=== PATIENT | female | born 1975 | race Caucasian/White ===

== ENCOUNTER 2016-08-19 04:46 | Emergency (ER) | payer SELFPAY ==
[~2016-08-19] VITALS: Ht 177.8 cm; Wt 80.6 kg
[~2016-08-19 04:46] MED LIST: AMOX500C2 PO; AMOX500T2 PO; CITA40TA14 PO; PROP20TA7 PO; TRAM50TA4 PO; TRAZ-170 PO; VITA1TAB21 PO
--- OUTSIDE RECORDS SUMMARY | 2016-08-19 04:50 | XMS REPORT ---
Author Author Rae Bates eClinicalWorks Address Unknown Phone Unavailable Care Team Providers Care Senior Stereo Compiler Team Lead Name Role Phone Rae Bates CP Unavailable Allergies No Known Allergies Problems Problem Type Condition Code Onset Dates Condition Status Problem Bipolar disorder, current episode depressed, moderate F31.32 Active Problem Generalized anxiety disorder F41.1 Active Problem Attention-deficit hyperactivity disorder, combined type F90.2 Active Problem Irregular menstrual cycle 626.4 Active Problem Other constipation 564.09 Active Problem Personal history of tobacco use, presenting hazards to health V15.82 Active Medications Medication Code System Code Instructions Start Date End Date Status Dosage Trazodone HCl [facility] [address]-18 100 MG Orally at bedtime as needed for sleep Jul 09, 2015 1-2 tablets at bedtime Citalopram Hydrobromide [facility] [id number] 40 MG Orally Once a day 1/ 2 tablet for one week, then increase to one full tablet daily Vyvanse [facility] [address]-19 40 MG Orally Once a day for ADHD October 25, 2015 1 capsule in the morning Propranolol HCl [facility] [address]-84 20 MG Orally twice a day for anxiety 1 tablet Results No Known Results Summary Purpose eClinicalWorks Submission
--- OUTSIDE RECORDS SUMMARY | 2016-08-19 04:50 | XMS REPORT | Continuity of Care Document ---
Author Author [facility] Organization [facility] Address Unknown Phone Unavailable Allergies Active Description Code Type Severity Reaction Onset Reported/Identified Relationship to Patient Clinical Status Yes No Known Allergies No Known Allergies Drug Allergy Unknown N/A 03/06/2015 Medications Problems Date Dx Coded Attending Type Code Diagnosis Diagnosed By 09/07/2013 Tyrell Bond MD Final 346.90 MIGRAINE NOS W/O SM 09/07/2013 Tyrell Bond MD Final 401.9 HYPERTENSION NOS 09/07/2013 Tyrell Bond MD 784.0 HEADACHE 10/05/2013 Ingrid Scott DO Final 305.1 TOBACCO USE DISORDER 10/05/2013 Ingrid Scott DO Final 307.81 TENSION HEADACHE 10/05/2013 Ingrid Scott DO Final 401.9 HYPERTENSION NOS 10/05/2013 Ingrid Scott DO Admitting 784.0 HEADACHE Procedures Results Test Result Range GLUCOSE (POC) - 07/02/14 18:46 GLUCOSE (POC) 96 mg/dL 70-99 Encounters ACCT No. Visit Date/Time Discharge Status Pt. Type Provider Facility Loc./Unit Complaint [id number] 10/05/2013 09:00:00 2013 11:03:00 DIS Emergency Ingrid Scott DO [facility] [id number] 09/07/2013 01:17:00 2013 02:35:00 DIS Emergency Tyrell Bond MD [facility]
--- OUTSIDE RECORDS SUMMARY | 2016-08-19 04:51 | XMS REPORT | Continuity of Care Document ---
Author Author [facility] Organization [facility] Address Unknown Phone Unavailable Support Name Relationship Address Phone CANDACE GODINEZ MD [address] [place] [address] Unavailable KALE MARROQUIN Next Of Kin [address] [place] [address] Insurance Providers Guarantor Ashok Carlson Address [address] [place] [id number] Email DENIED/NO TO PORTAL Payer Self Pay Subscriber's Name Ashok Carlson Relationship 18 Self Advance Directives Directive Response Recorded Date/Time Advanced Directives Type None 10/27/13 4:14pm Ordered Resuscitation Status Full Code 10/27/13 8:48am Chief Complaint and Reason for Visit Chief Complaint Toothache Reason for Visit Dental caries Problems Active Problems Medical Problem Onset Date Status Abdominal pain Unknown Acute Abdominal pain Unknown Acute Acute cholecystitis Unknown Acute Acute cholecystitis Unknown Acute Cough Unknown Acute Dental caries Unknown Acute Gum abscess Unknown Acute Gum abscess Unknown Acute Lumbar back pain Unknown Acute Lumbar back pain Unknown Acute Migraine Unknown Acute Muscle spasm of back Unknown Acute Pain, dental Unknown Acute Sinusitis Unknown Acute Toothache Unknown Acute Toothache Unknown Acute Past Problems Medical Problem Onset Date Dental infection Unknown Medication side effect Unknown Polysubstance abuse Unknown Stimulant abuse Unknown Suicidal intent Unknown Medications Current Home Medications Medication Dose Units Route Directions Days Qty Instructions Start Date Amoxicillin 500 Mg Tablet 500 Mg Oral Three Times A Day 10 Days Amoxicillin 500 Mg Capsule 500 Mg Oral Twice A Day 02/20/16 Citalopram Hydrobromide (Celexa) 40 Mg Tablet 40 Mg Oral Bedtime 12/27/15 Propranolol Hcl 20 Mg Tablet 20 Mg Oral Twice A Day 06/21/15 Tramadol Hcl 50 Mg Tablet 1-2 Tab Oral Every 6 Hours as needed for Pain 10 Tablet 02/20/16 Trazodone Hcl 50 Mg Tablet 50-100 Mg Oral Bedtime 07/20/15 Vitamin B Complex 1 Each Tablet 1 Tab Oral Daily 02/20/16 Past Home Medications Medication Directions Ordered Status Amoxicillin 500 Mg Capsule, 1 Cap Oral Three Times A Day 12/14/14 Discontinued None , 02/18/10 Discontinued Tramadol Hcl 50 Mg Tablet, 1-2 Tab Oral Q6h/0300,0900,1500,2100 as needed for Dental Pain 12/14/14 Discontinued Social History Social History Problem Response Recorded Date/Time Onset Date Status Chewing Tobacco Status No 10/27/2013 10:12am Not Applicable Not Applicable Hx Substance Use Y HX OF - meth, 02/20/2016 11:24am Not Applicable Not Applicable Hx Alcohol Use Y Occassional 02/20/2016 11:24am Not Applicable Not Applicable Has the pt used tobacco in the last 12 months Yes 10/27/2013 4:15pm Not Applicable Not Applicable Tobacco Usage smoke 10/20/2013 1:51pm Not Applicable Not Applicable Query Response Start Date Stop Date Smoking Status Current every day smoker Hospital Discharge Instructions No hospital discharge instructions. Plan of Care Discharge Date 02/20/16 11:33am Disposition 01 DISCHARGED HOME, SELF-CARE Condition at Discharge Stable Instructions/Education Provided Tooth Decay Prescriptions See Medication Section Additional Instructions/Education The only person who can fix this problem is a dentist, I have provided you with the [employer] dental numbers for [place] Care Plan and Goals Physician Care Plan Problem: Tooth decay Goal: Follow up with primary care provider Instructions: Take medications and follow care plan as discussed/written Functional Status No functional status results. Allergies, Adverse Reactions, Alerts Allergen Type Severity Reaction Status Last Updated No Known Drug Allergies Allergy Unknown Active 01/30/16 Immunizations Query Response on File Recorded Date/Time Hx Influenza Vaccination No 12/28/14 3:08am Hx Pneumococcal Vaccination No 12/28/14 3:08am Hx Influenza Vaccination No 12/28/14 3:08am Influenza Vaccine Hx no 02/20/16 11:24am Vital Signs Acute Vital Signs Vital Response Date/Time Temperature (Fahrenheit) 97.9 deg F (96.8 - 99.1) 02/20/2016 11:33am Temperature (Calculated Celsius) 36.80323 degrees C (36.0 - 37.3) 02/20/2016 11:33am Pulse Rate (adult) 97 bpm (60 - 100) 02/20/2016 11:33am Respiratory Rate 20 breaths/min (10 - 20) 02/20/2016 11:33am O2 Sat by Pulse Oximetry 96 % (90 - 100) 02/20/2016 11:33am Blood Pressure 116/77 mm Hg 02/20/2016 11:33am Height (Feet) 5 feet 02/20/2016 10:52am Height (Inches) 10.00 inches 02/20/2016 10:52am Weight (Kilograms) 82.200 kg 02/20/2016 10:52am Body Mass Index (BMI) 26.0 02/20/2016 10:52am Results Laboratory Results Test Name Result Units Flags Reference Collection Date/Time Result Date/ Time Comments White Blood Count 15.9 T/MM3 H 4.5-11.0 01/30/2016 10:19pm 01/30/2016 10 :44pm Red Blood Count 4.65 M/MM3 4.00-5.20 01/30/2016 10:19pm 01/30/2016 10: 44pm Hemoglobin 13.3 GM/DL 12-16 01/30/2016 10:01/30/2016 10:44pm Hematocrit 39.4 % 36-46 01/30/2016 10:01/30/2016 10:44pm Mean Corpuscular Volume 84.7 UM3 80-100 01/30/2016 10:01/30/2016 10:44pm Mean Corpuscular Hemoglobin 28.6 UUG 26-34 01/30/2016 10:pm 2015 10:44pm Mean Corpuscular Hemoglobin Concent 33.8 GM/DL 31-37 01/30/2016 10:01/30/2016 10:44pm RDW Standard Deviation 39.7 FL 36.9-50.2 01/30/2016 10:01/30/2016 10:44pm Platelet Count 356 T/MM3 130-400 01/30/2016 10:01/30/2016 10:44pm Mean Platelet Volume 9.4 UM3 9.4-12.4 01/30/2016 10:pm 01/30/2016 10: 44pm Neutrophils (%) (Auto) 76.3 % H 33-66 01/30/2016 7:55pm 01/30/2016 7: 59pm Lymphocytes (%) (Auto) 16.8 % L 23-45 01/30/2016 7:55pm 01/30/2016 7: 59pm Monocytes (%) (Auto) 6.2 % 0-9.0 01/30/2016 7:55pm 01/30/2016 7:59pm Eosinophils (%) (Auto) 0.2 % 0-4 01/30/2016 7:55pm 01/30/2016 7:59pm Basophils (%) (Auto) 0.2 % 0-2 01/30/2016 7:55pm 01/30/2016 7:59pm Immature Granulocyte % (Auto) 0.3 % 0.0-0.5 01/30/2016 7:55pm 2015 7:59pm Absolute Neutrophils (auto) 14.3 T/MM3 H 1.8-7.7 01/30/2016 7:55pm 01/29 7:59pm Absolute Lymphocytes (auto) 3.1 T/MM3 1-4.8 01/30/2016 7:55pm 2015 7:59pm Absolute Monocytes (auto) 1.2 T/MM3 H 0-0.8 01/30/2016 7:55pm 2015 7:59pm Absolute Eosinophils (auto) 0.0 T/MM3 0-0.5 01/30/2016 7:55pm 2015 7:59pm Absolute Basophils (auto) 0.0 T/MM3 0-0.2 01/30/2016 7:55pm 01/30/2016 7:59pm Absolute Immature Granulocyte (auto 0.05 T/MM3 H 0.00-0.03 01/30/2016 7: 55pm 01/30/2016 7:59pm Neutrophils % (Manual) 74.0 % H 33-66 01/30/2016 10:19pm 01/30/2016 10: 57pm Band Neutrophils % 1.0 % 0-6 01/30/2016 10:19pm 01/30/2016 10:57pm Lymphocytes % (Manual) 16.0 % L 23-45 01/30/2016 10:19pm 01/30/2016 10: 57pm Monocytes % (Manual) 6.0 % 0-9.0 01/30/2016 10:19pm 01/30/2016 10:57pm Eosinophils % (Manual) 1.0 % 0-4 01/30/2016 10:19pm 01/30/2016 10:57pm Reactive Lymphocytes % 2.0 % H 0-0 01/30/2016 10:01/30/2016 10: 57pm Band Neutrophils # 0.2 T/MM3 01/30/2016 10:01/30/2016 10:57pm Absolute Neutrophils (Manual) 11.8 T/MM3 H 1.8-7.7 01/30/2016 10:pm 10:57pm Lymphocytes # (Manual) 2.5 T/MM3 1-4.8 01/30/2016 10:pm 01/30/2016 10 :57pm Monocytes # (Manual) 1.0 T/MM3 H 0-0.8 01/30/2016 10:pm 01/30/2016 10: 57pm Eosinophils # (Manual) 0.2 T/MM3 0-0.5 01/30/2016 10:pm 01/30/2016 10 :57pm Reactive Lymphocytes # 0.3 T/MM3 H 0-0 01/30/2016 10:pm 01/30/2016 10: 57pm Red Cell Morphology Comment NORMAL 01/30/2016 10:01/30/2016 10 :57pm Icterus Index < 2 0-7 01/30/2016 4:pm 01/30/2016 4:44pm Chemistry Specimen Hemolysis < 15 0-25 01/30/2016 10:01/30/2016 10:29pm 0-25: Specimen Exhibited No Hemolysis. Turbidity < 20 0-20 01/30/2016 4:23pm 01/30/2016 4:44pm Sodium Level 141 MEQ/L 134-144 01/30/2016 4:pm 01/30/2016 4:50pm Potassium Level 3.4 MEQ/L L 3.6-5 01/30/2016 10:01/30/2016 10:29pm Chloride Level 104 MEQ/L 98-107 01/30/2016 4:23pm 01/30/2016 4:50pm Carbon Dioxide Level 23 MEQ/L 22-30 01/30/2016 4:pm 01/30/2016 4: 50pm Anion Gap 14 MEQ/L 5-15 01/30/2016 4:23pm 01/30/2016 4:50pm Blood Urea Nitrogen 14.0 MG/DL 7-01/30/2016 4:01/30/2016 4: 50pm Creatinine 0.7 MG/DL 0.7-1.2 01/30/2016 4:pm 01/30/2016 4:50pm BUN/Creatinine Ratio 20 RATIO 6-26 01/30/2016 4:01/30/2016 4:50pm Glomerular Filtration Rate Calc 92 01/30/2016 4:01/30/2016 4: 50pm Glucose Level 99 MG/DL 65-110 01/30/2016 4:01/30/2016 4:50pm Calculated Osmolality 272 MOSM/KG 261-280 01/30/2016 4:01/30/2016 4:50pm Calcium Level 9.7 MG/DL 8.4-10.2 01/30/2016 4:pm 01/30/2016 4:50pm Acetaminophen Level < 10 UG/ML L 10-01/30/2016 4:pm 01/30/2016 4: 50pm TOXIC <4 HR POST INGESTION: >150 MG/L; TOXIC <12 HR POST INGESTION: >50 MG/L Salicylates Level < 1.0 MG/DL L 201/30/2016 4:01/30/2016 4: 50pm Alcohol, Quantitative <10 MG/DL <10 01/30/2016 4:01/30/2016 4: 50pm Thyroid Stimulating Hormone (TSH) 1.25 MIU/L 0.47-4.68 01/30/2016 4: pm 01/30/2016 5:32pm Urine Collection Type CLEANCATCH-MIDSTREAM 01/30/2016 4:2015 4:40pm Urine Color YELLOW YELLOW 01/30/2016 4:01/30/2016 4:40pm Urine Turbidity SL CLOUDY CLEAR 01/30/2016 4:pm 01/30/2016 4:40pm Urine Specific [place] >=1.030 H 1.015-1.025 01/30/2016 4:pm 2015 4:40pm Urine pH 5.5 5.0-8.0 01/30/2016 4:pm 01/30/2016 4:40pm Urine Leukocyte Esterase NEGATIVE NEGATIVE 01/30/2016 4:2015 4:40pm Urine Nitrite NEGATIVE NEGATIVE 01/30/2016 4:27pm 01/30/2016 4:40pm Urine Protein TRACE A NEGATIVE 01/30/2016 4:27pm 01/30/2016 4:40pm Urine Glucose (UA) NEGATIVE NEGATIVE 01/30/2016 4:27pm 01/30/2016 4: 40pm Urine Ketones NEGATIVE NEGATIVE 01/30/2016 4:27pm 01/30/2016 4:40pm Urine Urobilinogen 0.2 EU/DL NORMAL 01/30/2016 4:27pm 01/30/2016 4: 40pm Urine Bilirubin 1+ A NEGATIVE 01/30/2016 4:27pm 01/30/2016 4:40pm Urine Blood NEGATIVE NEGATIVE 01/30/2016 4:27pm 01/30/2016 4:40pm Urinalysis Comment MICROSCOPIC NOT IND. 01/30/2016 4:27pm 2015 4:40pm Procedures Procedure Status Date Provider(s) HYDRATE IV INFUSION ADD-ON Completed 01/30/16 HYDRATE IV INFUSION ADD-ON Completed 01/30/16 HYDRATE IV INFUSION ADD-ON Completed 01/30/16 THER/PROPH/DIAG INJ SC/IM Completed 01/30/16 THER/PROPH/DIAG INJ IV PUSH Completed 01/30/16 TX/PRO/DX INJ SAME DRUG CHEMICAL RESEARCH TECHNICIAN Completed 01/30/16 Encounters Encounter Location Arrival/Admit Date Discharge/Depart Date Attending Provider Departed Emergency Room [facility] 02/20/16 10:50am 02/20/16 11: 33am CANDACE GODINEZ MD Departed Emergency Room [facility] 01/30/16 3:03pm 01/31/16 12: 24am MORAIMA HONG DO Departed Emergency Room [facility] 01/19/16 2:17am 01/19/16 2: 51am MAYNOR GILES MD Departed Emergency Room [facility] 12/27/15 2:11pm 12/27/15 3: 50pm CANDACE GODINEZ MD Recent Diagnosis
--- OUTSIDE RECORDS SUMMARY | 2016-08-19 04:51 | XMS REPORT | Continuity of Care Document ---
Author Author [facility] Organization [facility] Address Unknown Phone Unavailable Support Name Relationship Address Phone BECKY RICARDO MD Caregiver [address] [place] [address] [place] [phone] KALE DALEY Next Of Kin [address] [place] [address] Insurance Providers Payer Name Policy Number Subscriber Name Relationship Raoul [employer] [id number] Ashok Carlson 18 Self Advance Directives Directive Response Recorded Date/Time Advanced Directives Type None 10/27/13 4:14pm Ordered Resuscitation Status Full Code 10/27/13 8:48am Problems Medical Problems Problem Onset Date Status Abdominal pain Unknown Active Abdominal pain Unknown Active Acute cholecystitis Unknown Active Acute cholecystitis Unknown Active Toothache Unknown Active Toothache Unknown Active Gum abscess Unknown Active Dental caries Unknown Active Gum abscess Unknown Active Muscle spasm of back Unknown Active Lumbar back pain Unknown Active Medications Medication Dose Route Sig Days/Qty Instructions Order Date Discontinued Date Status [None] 02/18/10 05/29/12 Discontinued Citalopram Hydrobromide 40 Mg PO DAILY 05/29/12 Active Trazodone HCl 1 Tab BEDTIME 12/28/13 Active Propranolol HCl 40 Mg PO TWICE A DAY Take 1 tablet, by mouth, 2 times a day. 03/06/14 Active Cyclobenzaprine HCl 1 Tab PO THREE TIMES A DAY 04/13/14 Active Dextroamphetamine/Amphetamine 1 Tab PO 04/13/14 Active Naproxen 500 Mg PO TWICE A DAY 10 Days 04/13/14 Active Hydrocodone/Acetaminophen 1 Tab PO EVERY 4-6 HOURS 20 Qty 04/13/14 Active Social History Social History Problem Response Recorded Date/Time Smoking Status Current every day smoker 10/27/2013 4:15pm When did patient START smoking? 1988 04/13/2014 4:28pm Chewing Tobacco Status No 10/27/2013 10:12am Hx Substance Use Y 6-7 years ago - meth, denies current use 04/13/2014 4:28pm Hx Alcohol Use Y Occassional 04/13/2014 4:28pm Has the pt used tobacco in the last 12 months Yes 10/27/2013 4:15pm Query Response Start Date Stop Date Smoking Status Current every day smoker Hospital Discharge Instructions No hospital discharge instructions. Plan of Care No plan of care. Functional Status Query Response Date Recorded Physical Hygiene Self April 13, 2014 4:28pm Disabilities None October 31, 2013 3:47pm Devices Used None October 31, 2013 3:47pm Dressing Self October 31, 2013 3:47pm Ambulation Self October 31, 2013 3:47pm Diet Self October 31, 2013 3:47pm Mental Status Alert Oriented October 31, 2013 3:47pm Disabilities None October 31, 2013 3:47pm Devices Used None October 31, 2013 3:47pm Physical Hygiene Self April 13, 2014 4:28pm Dressing Self October 31, 2013 3:47pm Ambulation Self October 31, 2013 3:47pm Diet Self October 31, 2013 3:47pm Allergies, Adverse Reactions, Alerts Allergen Type Severity Reaction Status Last Updated No Known Drug Allergies Allergy Unknown Active 03/06/14 Immunizations Name Given Type Hx Influenza Vaccination No Historical Hx Pneumococcal Vaccination No Historical Hx Influenza Vaccination No Historical Vital Signs Acute Vital Signs Vital Response Date/Time Temperature (Fahrenheit) 96.7 deg F (96.8 - 99.1) Temperature (Calculated Celsius) 35.08655 degrees C (36.0 - 37.3) Pulse Rate (adult) 80 bpm (60 - 100) Respiratory Rate 12 breaths/min (10 - 20) O2 Sat by Pulse Oximetry 100 % (90 - 100) Oxygen Flow Rate 2.0 L/min Blood Pressure 168/87 mm Hg Height 5 ft 10 in Weight 112 lb Body Mass Index 16.0 kg/m^2 Results Test Source Date Result Interp. Ref. Range Comments Alanine Aminotransferase (ALT/SGPT) October 27, 2013 5:55am 31 U/L N 9-52 Albumin October 27, 2013 5:55am 3.7 G/DL N 3.5-5.0 Albumin/Globulin Ratio October 27, 2013 5:55am 1.0 RATIO L 1.1-2.2 Alkaline Phosphatase October 27, 2013 5:55am 271 U/L H 38-126 Amylase Level October 27, 2013 5:55am 38 U/L N 30-110 Anion Gap October 30, 2013 4:24am 8 MEQ/L N 5-15 Aspartate Amino Transf (AST/SGOT) October 27, 2013 5:55am 23 U/L N 14-36 BUN/Creatinine Ratio October 30, 2013 4:24am Not Performed 6-26 Band Neutrophils # October 28, 2013 4:31am 0.7 T/MM3 - Band Neutrophils % October 28, 2013 4:31am 4.0 % N 0-6 Basophils # (Auto) October 31, 2013 5:44am 0.0 T/MM3 N 0-0.2 Basophils (%) (Auto) October 31, 2013 5:44am 0.5 % N 0-2 Blood Urea Nitrogen October 30, 2013 4:24am < 2.0 MG/DL L 7-17 Calcium Level October 30, 2013 4:24am 8.6 MG/DL N 8.4-10.2 Calculated Osmolality October 30, 2013 4:24am Test not performed 261-280 Carbon Dioxide Level October 30, 2013 4:24am 30 MEQ/L N 22-30 Chloride Level October 30, 2013 4:24am 98 MEQ/L N 98-107 Creatinine October 30, 2013 4:24am 0.5 MG/DL L 0.7-1.2 Eosinophils # (Auto) October 31, 2013 5:44am 0.4 T/MM3 N 0-0.5 Eosinophils (%) (Auto) October 31, 2013 5:44am 4.2 % H 0-4 Globulin October 27, 2013 5:55am 3.7 G/DL H 2.4-3.6 Glucose Level October 30, 2013 4:24am 95 MG/DL N 65-110 Group A Streptococcus Screen May 29, 2012 8:20am Negative - Strep culture confirmation to follow Hematocrit October 31, 2013 5:44am 27.0 % L 36-46 Hemoglobin October 31, 2013 5:44am 8.8 GM/DL DL 12-16 Lipase October 27, 2013 5:55am 37 U/L N 23-300 Lymphocytes # (Auto) October 31, 2013 5:44am 2.3 T/MM3 N 1-4.8 Lymphocytes # (Manual) October 28, 2013 4:31am 2.0 T/MM3 N 1-4.8 Lymphocytes % (Manual) October 28, 2013 4:31am 12.0 % L 23-45 Lymphocytes (%) (Auto) October 31, 2013 5:44am 26.9 % N 23-45 Mean Corpuscular Hemoglobin October 31, 2013 5:44am 26.7 UUG N 26-34 Mean Corpuscular Hemoglobin Concent October 31, 2013 5:44am 32.6 GM/DL N 31 -37 Mean Corpuscular Volume October 31, 2013 5:44am 82.1 UM3 N 80-100 Mean Platelet Volume October 31, 2013 5:44am 8.4 UM3 L 9.4-12.4 Monocytes # (Auto) October 31, 2013 5:44am 0.9 T/MM3 H 0-0.8 Monocytes # (Manual) October 28, 2013 4:31am 1.0 T/MM3 H 0-0.8 Monocytes % (Manual) October 28, 2013 4:31am 6.0 % N 0-9.0 Monocytes (%) (Auto) October 31, 2013 5:44am 10.0 % H 0-9.0 Neutrophils # (Auto) October 31, 2013 5:44am 4.9 T/MM3 N 1.8-7.7 Neutrophils # (Manual) October 28, 2013 4:31am 13.3 T/MM3 H 1.8-7.7 Neutrophils % (Manual) October 28, 2013 4:31am 78.0 % H 33-66 Neutrophils (%) (Auto) October 31, 2013 5:44am 57.8 % N 33-66 Platelet Count October 31, 2013 5:44am 687 T/MM3 H 130-400 Potassium Level October 30, 2013 4:24am 4.5 MEQ/L DN 3.6-5 RDW Standard Deviation October 31, 2013 5:44am 36.3 FL L 36.9-50.2 Red Blood Count October 31, 2013 5:44am 3.29 M/MM3 L 4.00-5.20 Sodium Level October 30, 2013 4:24am 136 MEQ/L N 134-144 Total Bilirubin October 27, 2013 5:55am < 0.10 MG/DL L 0.20-1.30 Total Protein October 27, 2013 5:55am 7.4 G/DL N 6.3-8.2 Urine Bilirubin October 27, 2013 6:05am Negative - Has specimen been collected/obtained? Y Urine Blood October 27, 2013 6:05am Negative - Has specimen been collected/obtained? Y Urine Collection Type October 27, 2013 6:05am Cleancatch-midstream - Has specimen been collected/obtained? Y Urine Color October 27, 2013 6:05am Yellow - Has specimen been collected /obtained? Y Urine Glucose (UA) October 27, 2013 6:05am Negative - Has specimen been collected/obtained? Y Urine Ketones October 27, 2013 6:05am Negative - Has specimen been collected/obtained? Y Urine Leukocyte Esterase October 27, 2013 6:05am Negative - Has specimen been collected/obtained? Y Urine Nitrite October 27, 2013 6:05am Negative - Has specimen been collected/obtained? Y Urine Protein October 27, 2013 6:05am Negative - Has specimen been collected/obtained? Y Urine Specific [place] October 27, 2013 6:05am <=1.005 L - Has specimen been collected/obtained? Y Urine Turbidity October 27, 2013 6:05am Clear - Has specimen been collected/obtained? Y Urine Urobilinogen October 27, 2013 6:05am 0.2 EU/DL - Has specimen been collected/obtained? Y Urine pH October 27, 2013 6:05am 6.0 - Has specimen been collected/ obtained? Y White Blood Count October 31, 2013 5:44am 8.5 T/MM3 N 4.5-11.0 Chemistry Specimen Hemolysis October 30, 2013 4:24am < 15 0-25 0-25: No Hemolysis.26-70: Slight Hemolysis - can falsely elevate K and Urine Protein. 71-285: Moderate Hemolysis - can falsely elevate K, Troponin I, CA 19-9, PTH, CSF GLucose, and Urine Protein, and can falsely decrease Phenytoin. 286-999: Gross Hemolysis - can falsely elevate K, Troponin I, CA 19-9, PTH, CSF Glucose, and Urine Protine, and can falsely decrease Phenytoin. Recommend specimen recollection. Urinalysis Comment October 27, 2013 6:05am Microscopic not ind. - Has specimen been collected/obtained? Y Turbidity October 30, 2013 4:24am < 20 0-20 Glomerular Filtration Rate Calc October 30, 2013 4:24am 138 - Immature Granulocyte # (Auto) October 31, 2013 5:44am 0.05 T/MM3 H 0.00- 0.03 Immature Granulocyte % (Auto) October 31, 2013 5:44am 0.6 % H 0.0-0.5 Icterus Index October 30, 2013 4:24am < 2 0-7 Group A Streptococcus Culture Throat May 29, 2012 8:46am Procedures No known history of procedures. Encounters Encounter Location Date/Time Departed Emergency Room [facility] 04/13/14 4:09pm Departed Emergency Room [facility] 03/06/14 4:42am Recent Diagnosis
--- OUTSIDE RECORDS SUMMARY | 2016-08-19 04:51 | XMS REPORT | Continuity of Care Document ---
Author Author [facility] Organization [facility] Address Unknown Phone Unavailable Care Team Providers Care Degree Clerk Name Role Phone MENDEL PLATA APRN Primary Care Physician [phone] Insurance Providers Payer Name Policy Number Subscriber Name Relationship [employer] [id number] Ashok Carlson 17 Self Advance Directives Directive [...] caries Unknown Active Gum abscess Unknown Active Medications Medication Dose Route Sig Days/Qty Instructions Order Date Discontinued Date Status [None] 02/18/10 05/29/12 Discontinued Citalopram Hydrobromide 40 Mg PO DAILY 05/29/12 Active Trazodone HCl 1 Tab BEDTIME 12/28/13 Active Propranolol HCl 20 Mg PO TWICE A DAY Take 1 tablet, by mouth, 2 times a day. 03/06/14 Active Amoxicillin 500 Mg PO THREE TIMES A DAY 30 Qty 03/06/14 Active Hydrocodone/Acetaminophen 1-2 Tab PO Every 6 Hours PRN PAIN 20 Qty Active Social History Social History Problem Response Recorded Date/Time Smoking Status Current every day smoker 10/27/2013 4:15pm When did patient START smoking? started at age 12 03/06/2014 4:50am Chewing Tobacco Status No 10/27/2013 10:12am Hx Substance Use Y 6-7 years ago - meth, denies current use 03/06/2014 4:50am Hx Alcohol Use Y Occassional 03/06/2014 4:50am Has the pt used tobacco in the last 12 months Yes 10/27/2013 4:15pm Query Response Start Date Stop Date Smoking Status Current every day smoker Hospital Discharge Instructions No hospital discharge instructions. Plan of Care No plan of care. Functional Status Query Response Date Recorded Physical Hygiene Self March 06, 2014 4:50am Disabilities None October 31, 2013 3:47pm Devices Used None October 31, 2013 3:47pm Dressing Self October 31, 2013 3:47pm Ambulation Self October 31, 2013 3:47pm Diet Self October 31, 2013 3:47pm Mental Status Alert Oriented October 31, 2013 3:47pm Disabilities None October 31, 2013 3:47pm Devices Used None October 31, 2013 3:47pm Physical Hygiene Self March 06, 2014 4:50am Dressing Self October 31, 2013 3:47pm Ambulation [...] Vital Signs Vital Response Date/Time Temperature (Fahrenheit) 96.6 deg F (96.8 - 99.1) Temperature (Calculated Celsius) 35.09794 degrees C (36.0 - 37.3) Pulse Rate (adult) 83 bpm (60 - 100) Respiratory Rate 20 breaths/min (10 - 20) O2 Sat by Pulse Oximetry 98 % (90 - 100) Oxygen Flow Rate 2.00 L/min Blood Pressure 162/83 mm Hg Height 5 ft 10 in Weight 167 lb Body Mass Index 24.0 kg/m^2 Results Test Source Date Result Interp. [...] Has specimen been collected/obtained? Y Urine Specific [place] October 27, 2013 6:05am <=1.005 L - [...] Encounters Encounter Location Date/Time Departed Emergency Room [facility] 03/06/14 4:42am Departed Emergency Room [facility] 12/28/13 12:16pm Recent Diagnosis
--- OUTSIDE RECORDS SUMMARY | 2016-08-19 04:52 | XMS REPORT ---
Author Author Susanne Fragoso [facility] eClinical[employer] Address Unknown Phone Unavailable Care Team Providers Care Assistant Manager Pt Name Role Phone Susanne Fragoso CP Unavailable Allergies No Known Allergies Problems Problem Type Condition Code Onset Dates Condition Status Problem Bipolar disorder, current episode depressed, moderate F31.32 Active Problem Generalized anxiety disorder F41.1 Active Problem Attention-deficit hyperactivity disorder, combined type F90.2 Active Problem Irregular menstrual cycle 626.4 Active Problem Other constipation 564.09 Active Problem Personal history of tobacco use, presenting hazards to health V15.82 Active Medications No Known Medications Results No Known Results Summary Purpose eClinicalWorks Submission
[2016-08-19 04:53] VITALS: TEMP 97.7; Ht 177.8 cm; Wt 80.6 kg
--- OUTSIDE RECORDS SUMMARY | 2016-08-19 05:07 | XMS REPORT | Continuity of Care Document ---
Author Author [facility] Organization [facility] Address Unknown Phone Unavailable Allergies Active Description [...] Status Pt. Type Provider Facility Loc./Unit Complaint [id number] 10/05/2013 09:00:00 2013 11:03:00 DIS Emergency Ingrid Scott DO [facility] [id number] 09/07/2013 01:17:00 2013 02:35:00 DIS Emergency Tyrell Bond MD [facility]
--- OUTSIDE RECORDS SUMMARY | 2016-08-19 05:08 | XMS REPORT | Continuity of Care Document ---
Author Author [facility] Organization [facility] Address Unknown Phone Unavailable Care Team Providers Care Riveting Machine Operator Automatic Name Role Phone MENDEL PLATA APRN Primary Care Physician [phone] Insurance Providers Payer Name Policy Number Subscriber Name Relationship [employer] [id number] Ashok Carlson 17 Self Advance Directives Directive [...] F (96.8 - 99.1) Temperature (Calculated Celsius) 35.50639 degrees C (36.0 - 37.3) Pulse Rate [...] Has specimen been collected/obtained? Y Urine Specific [place] October 27, 2013 6:05am <=1.005 L - [...] Encounters Encounter Location Date/Time Departed Emergency Room [facility] 03/06/14 4:42am Departed Emergency Room [facility] 12/28/13 12:16pm Recent Diagnosis
--- OUTSIDE RECORDS SUMMARY | 2016-08-19 05:08 | XMS REPORT | Continuity of Care Document ---
Author Author [facility] Organization [facility] Address Unknown Phone Unavailable Support Name Relationship Address Phone BECKY RICARDO MD Caregiver [address] [place] [address] [place] [phone] KALE DALEY Next Of Kin [address] [place] [address] Insurance Providers Payer Name Policy Number Subscriber Name Relationship [employer] [id number] Ashok Carlson 17 Self Advance Directives Directive [...] F (96.8 - 99.1) Temperature (Calculated Celsius) 35.96371 degrees C (36.0 - 37.3) Pulse Rate [...] Has specimen been collected/obtained? Y Urine Specific [place] October 27, 2013 6:05am <=1.005 L - [...] Encounters Encounter Location Date/Time Departed Emergency Room [facility] 04/13/14 4:09pm Departed Emergency Room [facility] 03/06/14 4:42am Recent Diagnosis
[2016-08-19] MEDS ORDERED: TRAM50TA53 PO (05:44)
--- NOTE | 2016-08-19 05:44 | ERPDOC ---
Departure Disposition Decision Date: Aug 19, 2016 Disposition Decision Time: 05:43 Disposition: 01 DISCHARGED HOME, SELF-CARE Impression Impression Impression: Primary Impression: Sacroiliac joint pain Severity: Severe Condition: Improved Seen By: Physician only Patient Instructions: Low Back Strain (ED) Problems/Meds/Labs Reviewed?: Yes Medications reviewed and manag: Yes Follow up care ordered?: Yes Mental Status: Alert Scripts Tramadol HCl (Ultram) 50 Mg Tablet 50 MG PO QID for PAIN, #30 TAB 0 Refills Prov: MAYNOR GILES MD 08/19/16 HPI - Back Pain General Chief Complaint: Low Back Pain or Injury Stated Complaint: L BACK PAIN Time Seen by Provider: 04:48 Source: patient Exam Limitations: no limitations HPI - Back Pain Initial Comments For the past 3 days the patient has been having an exacerbation of her chronic low back pain. Generally patient has pain over her left SI joint, however over the past 3 days the pain has moved over to the right SI joint. Patient has been having intolerable pain despite using [id number] medications such as Tylenol and Aleve. Patient has no primary care physician as she has no insurance , and does not use due to perceived misdiagnosis in the past. No injury, no dysuria or abdominal symptoms, no fevers or chills, no other symptoms. Occurred At: home Onset/Timing: Gradual Severity/Quality: moderate, severe Location: lumbar spine 1 - Moderate pain, mild tenderness Associated Sypmtoms: lower back pain, DENIES: fever, loss of bladder control, loss of bowel control, muscle spasms, numbness in legs/feet, sensory/motor loss , tingling in legs/feet, weakness Hx of Similar Symptoms: Yes Allergies: Coded Allergies: No Known Drug Allergies (Verified Allergy, Unknown, 08/19/16) Past History Past Medical History Metabolic: hypertension ENMT: dental problems GI: IBS, gallbladder disease Neurological: migraines Musculoskeletal: back pain Psychological: ADHD, alcohol abuse, anxiety, depression Surgical History General: gallbladder Reproductive/: tubal ligation Family History Family PMH: FOUND: hypertension Vaccines Hx Influenza Vaccination: No Hx Pneumococcal Vaccination: No Social History Second Hand Exposure: No Substance Use Type: former substance user, methamphetamine Alcohol Intake: none Review of Systems Constitutional Constitutional: DENIES: appetite decrease, appetite increase, chills, dizziness , fever, weakness ENMT Ears: DENIES: pain Hearing: DENIES: hearing loss, tinnitus Balance: DENIES: vertigo Mouth/Throat: DENIES: change in swallowing, change in voice, hoarsness, painful swallowing, sore throat Cardiovascular Cardiac: DENIES: chest pain, dyspnea on exertion Rhythm/Rate: DENIES: irregular beat, palpitations, tachycardia Vascular: DENIES: pedal edema Pulmonary Respiratory: DENIES: cough, dyspnea, pleuritic chest pain GI Upper Abdomen: DENIES: dysphagia, heartburn/indigestion, nausea, pain, vomiting Lower Abdomen: DENIES: blood in stool, constipation, diarrhea, pain Musculoskeletal General: pain, tenderness, weakness, DENIES: atrophy of muscles, cramps, joint pain, joint swelling Integumentary Skin: DENIES: rash, sores Neurological General: DENIES: headache, numbness, tingling, vertigo, weakness Psychiatric Psychiatric: DENIES: anxiety, depression, nervousness Physical Exam General General Nourishment: well nourished, well developed, appears stated age General Body Habitus: well groomed Vitals and Pain First Documented Vital Signs Date Time Temp Pulse Resp B/P Pulse Ox O2 Delivery O2 Flow Rate FiO2 08/19/16 04:53 97.7 105 20 140/96 99 Room Air Weight: Kilograms: Height (feet): 5 Height (inches): 10.00 Triage Pain Scale: RN VS reviewed by Provider: Yes Normal Exams: Head: Normocephalic w/o trauma Eyes: Pupils are PERRLA w/ EOMI, No scleral icterus, irritation, or foreign bodies noted ENMT: No facial trauma, nasal exudates, pharyngeal erythema, or exudates are noted Neck: Full range of motion, without adenopathy, JVD, bruits or thyromegaly Chest/Resp: Clear all bower, with good airflow, and symmetry bilaterally CV: Regular rate and rhythm, without murmur or gallop, Pulses 2+ all extremities, capillary refill, <2 seconds all ext., no pedal edema noted Abdomen: Bowel sounds positive, soft, non-tender, non-distended, no hepatosplenomegaly, masses or bruits noted Lymphatic: No lymphadenopathy, or lymphedema noted Integumentary: No rashes, hives, or bruising noted, hair and nails, without abnormality Neurologic: Patient is alert, and oriented, cranial nerves, motor/sensory/ cerebellar, exams w/o gross deficits, to observation Psychiatric: Patient exhibits, appropriate attention, emotion and affect Musculoskeletal (brief) Musculoskeletal Brief: FOUND: tenderness, NOT FOUND: deformity, loss of motion , spasm Comments Moderate right SI joint tenderness, paraspinal tenderness or muscle spasms, no deformity. Progress Results/Orders Orders Procedure Category Date Status Time Hydromorphone PHA 08/19/16 Complete (Dilaudid) 05:45 Dexamethasone Inj PHA 08/19/16 Complete (Decadron) 05:45 Ketorolac (Toradol) PHA 08/19/16 Complete 05:45 Medications Current ED Medications Hydromorphone HCl (Dilaudid) 1 mg O ONCE IM Last administered on 08/19/16 06: 17; Start 08/19/16 at 05:45; Stop 08/19/16 at 05:46; Status DC Dexamethasone Sodium Phosphate (Decadron) 8 mg O ONCE IM Last administered on 08/19/16 06:18; Start 08/19/16 at 05:45; Stop 08/19/16 at 05:46; Status DC Ketorolac Tromethamine (Toradol) 60 mg O ONCE IM Last administered on 06:18; Start 08/19/16 at 05:45; Stop 08/19/16 at 05:46; Status DC Progress Progress Exacerbation of chronic low back pain, SI pain Patient given Toradol, dexamethasone, and Dilaudid here, with prescriptions for Ultram and instructions to establish with primary care physician MAYNOR GILES MD Aug 19, 2016 05:44
[2016-08-19] MEDS ORDERED: KETOROLAC 60mg/2ml INJECTION IM ONE (05:45)
[2016-08-19] MEDS ORDERED: DEXAMETHASONE 4mg/ml - 1ml INJECTION IM ONE (05:45)
[2016-08-19] MEDS ORDERED: HYDROMORPHONE 2mg/ml INJECTION IM ONE (05:45)
[2016-08-19 06:40] VITALS: BP 145/84; PULSE 82; RESP 16; O2SAT 98
[2016-08-19] MEDS ORDERED: NO CURRENT HOME MEDS (06:46)
== END 2016-08-19 06:12 | disposition home or self-care (01) ==
LOC: ED 04:46
DX: M53.3 Sacrococcygeal disorders, not elsewhere classified (principal)
CPT/HCPCS: 96372